=== PATIENT | male | born 1970 | race African-American/Black ===

== ENCOUNTER 2023-01-15 08:18 | Emergency (ER) | payer OTHER ==
--- OUTSIDE RECORDS SUMMARY | 2023-01-15 08:21 | XMS REPORT | Continuity of Care Document ---
:1970 Author Organization [facility] t Address [address] [place] [address] [address] [place] [address] Care Team Providers Name Role Phone ANA MARÍA PEREZ Attending Clinician Unavailable Problems This patient has no known problems. Allergies, Adverse Reactions, Alerts This patient has no known allergies or adverse reactions. Social History Social Habit Start Date Stop Date Quantity Comments Source Sex Assigned At [address] [facility] 00:00:00 00:00:00 Smoking Status Start Date Stop Date Source Tobacco smoking consumption unknown [facility] Medications This patient has no known medications. Immunizations Ordered Immunization Filled Immunization Date Status Commen ts Source Name Name PFIZER COVID-19 MRNA 2021-06-15 Completed [facility] VACCINATION 00:00:00 Hospital PFIZER COVID-19 MRNA 2021-05-25 Completed Meth odist VACCINATION 00:00:00 Hospital Procedures This patient has no known procedures. Plan of Care Planned Activity Planned Date Details Comments Source Future Scheduled 2022-11-08 [facility] 21:30:23 [code = INFLUENZA VACCINE] Future Scheduled 2022-11-08 COLONOSCOPY SCREENING [facility] Test 21:30:23 [code = COLONOSCOPY SCREENING] Future Scheduled 2022-11-08 SHINGLES VACCINES (1 Met [facility] Test 21:30:23 of 2) [code = SHINGLES VACCINES (1 of 2)] Future Scheduled 2022-11-08 COVID-19 VACCINE (3 - Me [facility] Test 21:30:23 Booster for Pfizer series) [code = COVID-19 VACCINE (3 - Booster for Pfizer series)] Encounters Start End Encounter Admission Attending Care Care Encounter Source Date/Time Date/Time Type Type Clinicians Facility Department ID 2021-06-15 2021-06-15 Outpatient CHRIS Vinicius [facility] [id number] [place] 00:00:00 00:00:00 ANA MARÍA [id number] 2021-05-25 2021-05-25 Outpatient [facility] [id number] [place] 00:00:00 00:00:[address] Results This patient has no known results.
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
[2023-01-15 10:31] VITALS: TEMP 97.5
[2023-01-15 10:36] VITALS: O2SAT 100
[2023-01-15 10:42] VITALS: BP 157/84
== END 2023-01-15 10:11 | disposition home or self-care (01) ==
LOC: ER 08:18
DX: M54.2 Cervicalgia (principal); M54.50 Low back pain, unspecified; V59.59XA Passenger in pick-up truck or van injured in collision with other motor vehicles in traffic accident, initial encounter
CPT/HCPCS: 70450; 72125; 71260; 74177; 99284; Q9967